=== PATIENT | female | born 1945 | race Hispanic/Latino ===

== ENCOUNTER 2016-11-24 08:58 | Day surgery (SDC) | payer MEDICARE, OTHER ==
[2016-05-15 09:20] VITALS: BMI 34.3
[2016-11-24] MEDS ORDERED: Lidocaine 2% Inj (20ml) ONE (10:07)
[2016-11-24] MEDS ORDERED: Propofol 10 mg/ml Inj (20 ML) ONE (10:07)
[2016-11-24] MEDS ORDERED: Lactated Ringer's 1,000 ML IV SCH (10:31)
[2016-11-24 11:05] VITALS: RESP 18
[2016-11-24 11:31] VITALS: BP 141/54; PULSE 70; TEMP 98; O2SAT 99
== END 2016-11-24 12:42 | disposition home or self-care (01) ==
LOC: ENDO 08:58
PROVIDERS: ATTEND Internal Medicine Gastroenterology
DX: K25.9 Gastric ulcer, unspecified as acute or chronic, without hemorrhage or perforation (principal); K29.50 Unspecified chronic gastritis without bleeding; K44.9 Diaphragmatic hernia without obstruction or gangrene
CPT/HCPCS: 43239; 88305; 88342; J2704; J7040; J7120

== ENCOUNTER 2017-05-18 07:19 | Day surgery (SDC) | payer MEDICARE, OTHER ==
[2017-05-11 11:43] VITALS: BMI 34.1
[2017-05-18] MEDS ORDERED: Propofol 10 mg/ml Inj (20 ML) ONE (10:48)
[2017-05-18] MEDS ORDERED: Sodium Chloride 0.9% 1,000 ML IV SCH (11:15)
[2017-05-18 11:17] VITALS: RESP 16
[2017-05-18 11:35] VITALS: O2SAT 99
[2017-05-18 11:52] VITALS: BP 142/68; PULSE 69; TEMP 97.9
== END 2017-05-18 12:15 | disposition home or self-care (01) ==
LOC: ENDO 07:19
PROVIDERS: ATTEND Internal Medicine Gastroenterology
DX: K44.9 Diaphragmatic hernia without obstruction or gangrene (principal); K29.50 Unspecified chronic gastritis without bleeding; Z87.19 Personal history of other diseases of the digestive system

== ENCOUNTER 2018-10-25 07:48 | Day surgery (SDC) | payer MEDICARE, OTHER ==
[2018-10-16 09:22] VITALS: BMI 35.6
[2018-10-25] MEDS ORDERED: Propofol 10 mg/ml Inj (20 ML) ONE ×2 (09:14→09:15)
[2018-10-25] MEDS ORDERED: Sodium Chloride 0.9% 1,000 ML IV SCH (10:00)
[2018-10-25 12:40] VITALS: BP 123/60; PULSE 79; RESP 16; TEMP 97.5; O2SAT 100
== END 2018-10-25 11:15 | disposition home or self-care (01) ==
LOC: ENDO 07:48
PROVIDERS: ATTEND Internal Medicine Gastroenterology
DX: K44.9 Diaphragmatic hernia without obstruction or gangrene (principal); K31.9 Disease of stomach and duodenum, unspecified
CPT/HCPCS: 43239; 88305; 88342; J2001; J2704; J7030; J7040